=== PATIENT | male | born 1965 | race Caucasian/White ===

== ENCOUNTER 2016-07-22 22:07 | Emergency (ER) | payer BC, OTHER ==
[~2016-07-22] VITALS: Ht 182.9 cm; Wt 107.5 kg
--- NOTE | ~2016-07-22 | EKG ---
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 Electronically Signed On 07-23-2016 8:11:40 CDT by Benji Linda [email or web address] <ELECTRONICALLY SIGNED> By: Benji Linda MD, [facility] 07/23/16 0811 09 09 Benji Linda MD, [facility] /EPI
[~2016-07-22 22:07] MED LIST: ADVAIRDISKUS; AFRIN15 ML NS; ALLEGRA; AMOXICILLIN500 M1 PO; AMOXICILLIN875 MG PO; ASPIR 8181 M1 PO; BACTRIM DS TAB1 EACH; BENADRYL25 MG PO; BENICAR; BENZONATATE; CIPROFLOXACIN500 M1 PO; DIAZEPAM; DIFLUCAN150 MG PO; DOXYCYCLINE 10100 MG PO; ECONAZOLE 1% CR30 G1; FLOMAX0.4 MG PO; FLONASE 0.05%50 MCG NASAL; HYDROCODONE-AP1 EAC6 PO; IBUPROFEN 800800 M1 PO; LEVAQUIN 500 M500 MG PO; MEDROL; MEDROLDOSEPACK PO; MOBIC7.5 MG PO; NAPROSYN500 MG PO; NASONEX17 GM NS; NEXIUM; NORCO 5-325 TA1 EACH PO; ORADENT 0.1% DEN5 G1; OSELB75 PO; PEPCID40 MG PO; PERCOCET 5-3251 EACH PO; PREDNISONE 20 M20 MG PO; PROVENTIL; PROVENTIL HFA6.7 G1 INH; SINGULAIR; VALIUM5 MG PO; VENTOLIN17 GM INH; VICODIN 5-3001 EACH; VICODIN 5-3001 EACH PO; ZITHROMAX250 MG PO; ZOFRAN4 MG PO; ZPAK PO
[2016-07-22] MEDS ORDERED: CYCLOBENZAPRINE5 MG (22:45)
[2016-07-22] MEDS ORDERED: VALIUM5 MG (22:45)
[2016-07-22 23:07] LABS: ABSOLUTE NEUTROPHILS 4.6 thou/uL (1.4-8.2); BASOPHILS 0.6 % (0.0-2.0); EOSINOPHILS 1.4 % (0.0-3.0); HEMATOCRIT 44.1 % (42.0-52.0); HEMOGLOBIN 14.9 gm/dL (14.0-18.0); LYMPHOCYTES 28.7 % (24.0-44.0); MCH 29.5 pg (26.0-34.0); MCHC 33.7 g/dL (28.0-37.0); MCV 87.4 fL (80.0-100.0); PLATELET COUNT 196 thou/uL (150-400); POLYS 60.3 % (36.0-66.0); RBC 5.04 mil/uL (4.50-6.00); RDW 14.4 % (10.5-14.5); WBC 7.6 thou/uL (4.0-11.0)
[2016-07-22 23:10] LABS: MANUAL DIFF NO
[2016-07-22 23:15] LABS: ANION GAP 9 mmol/L (7-16); BUN 14 mg/dL (7-18); CALCIUM 8.5 mg/dL (8.5-10.1); CHLORIDE 105 mmol/L (98-107); CO2 24 mmol/L (21-32); CREATININE 1.3 mg/dL (0.7-1.3); GLUCOSE 156 mg/dL (74-106); POTASSIUM 3.7 mmol/L (3.5-5.1); SODIUM 138 mmol/L (136-145)
[2016-07-22 23:22] LABS: ALBUMIN 3.8 g/dL (3.4-5.0); ALKALINE PHOSPHATASE 64 U/L (46-116); SGOT 27 U/L (15-37); SGPT 39 U/L (30-65); TOTAL BILIRUBIN 0.3 mg/dL (<0.1-1.0); TOTAL PROTEIN 7.7 g/dL (6.4-8.2); TROPONIN-I < 0.04 ng/mL (<0.04-0.07)
== END 2016-07-23 00:50 | disposition home or self-care (01) ==
LOC: ER 22:07
PROVIDERS: Emergency Medicine
DX: R07.89 Other chest pain (principal); J45.909 Unspecified asthma, uncomplicated; I10 Essential (primary) hypertension; E78.00 Pure hypercholesterolemia, unspecified; G47.30 Sleep apnea, unspecified; Z88.1 Allergy status to other antibiotic agents

== ENCOUNTER 2017-01-15 19:59 | Emergency (ER) | payer BC, OTHER ==
[~2017-01-15] VITALS: Ht 182.9 cm; Wt 107.5 kg
--- NOTE | ~2017-01-15 | EKG ---
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
[~2017-01-15 19:59] MED LIST changes: +CYCLOBENZAPRINE5 MG; +VALIUM5 MG
[2017-01-15 21:01] LABS: HEMATOCRIT 44.8 % (42.0-52.0); HEMOGLOBIN 15.4 gm/dL (14.0-18.0); MCH 29.8 pg (26.0-34.0); MCHC 34.4 g/dL (28.0-37.0); MCV 86.6 fL (80.0-100.0); PLATELET COUNT 231 thou/uL (150-400); RBC 5.17 mil/uL (4.50-6.00); RDW 13.7 % (10.5-14.5); WBC 7.7 thou/uL (4.0-11.0)
[2017-01-15 21:02] LABS: MANUAL DIFF YES
[2017-01-15 21:13] LABS: ANION GAP 7 mmol/L (7-16); BUN 13 mg/dL (7-18); CALCIUM 9.2 mg/dL (8.5-10.1); CHLORIDE 104 mmol/L (98-107); CO2 28 mmol/L (21-32); CREATININE 1.3 mg/dL (0.7-1.3); GLUCOSE 89 mg/dL (74-106); SODIUM 139 mmol/L (136-145)
[2017-01-15 21:19] LABS: TROPONIN-I < 0.04 ng/mL (<0.06)
[2017-01-15 21:25] LABS: ABSOLUTE NEUTROPHILS 4.4 thou/uL (1.4-8.2); TOTAL CELL COUNT 100
[2017-01-15] MEDS ORDERED: ANTIVERT25 MG PO (21:38)
== END 2017-01-15 22:18 | disposition home or self-care (01) ==
LOC: ER 19:59
PROVIDERS: Emergency Medicine
DX: R07.89 Other chest pain (principal); J45.909 Unspecified asthma, uncomplicated; I10 Essential (primary) hypertension; E78.00 Pure hypercholesterolemia, unspecified; G47.30 Sleep apnea, unspecified; Z88.1 Allergy status to other antibiotic agents; Z88.2 Allergy status to sulfonamides; Z87.891 Personal history of nicotine dependence

== ENCOUNTER 2017-06-25 17:45 | Emergency (ER) | payer BC, OTHER ==
[~2017-06-25] VITALS: Ht 182.9 cm; Wt 112.0 kg
--- NOTE | ~2017-06-25 | EKG ---
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: : 1965 Requested By: Juan M Vargas Order Number: [id number] MD: Benji Linda Measurements Intervals [place] Rate: 81 P: 38 [place]: 148 QRS: -43 QRSD: 91 T: 8 QT: 357 QTc: 415 Interpretive Statements Sinus rhythm Left anterior fascicular block Abnormal R-wave progression, late transition Compared to ECG 01/15/2017 20:04:26 No significant changes Electronically Signed On 06-26-2017 13:02:39 CDT by Benji Linda [email or web address] <ELECTRONICALLY SIGNED> By: Benji Linda MD, [facility] 06/26/17 1302 11 11 Benji Linda MD, [facility] /EPI
[~2017-06-25 17:45] MED LIST changes: +ANTIVERT25 MG PO
[2017-06-25 18:18] LABS: ABSOLUTE NEUTROPHILS 4.5 thou/uL (1.4-8.2); BASOPHILS 0.9 % (0.0-2.0); EOSINOPHILS 1.5 % (0.0-3.0); HEMATOCRIT 45.3 % (42.0-52.0); HEMOGLOBIN 15.4 gm/dL (14.0-18.0); LYMPHOCYTES 24.3 % (24.0-44.0); MCH 29.8 pg (26.0-34.0); MCV 87.5 fL (80.0-100.0); PLATELET COUNT 232 thou/uL (150-400); POLYS 63.3 % (36.0-66.0); RBC 5.17 mil/uL (4.50-6.00); RDW 14.5 % (10.5-14.5); WBC 7.1 thou/uL (4.0-11.0)
[2017-06-25] MEDS ORDERED: STEROID RECTAL (18:18)
[2017-06-25 18:21] LABS: ANION GAP 9 mmol/L (7-16); BUN 14 mg/dL (7-18); CALCIUM 9.2 mg/dL (8.5-10.1); CHLORIDE 105 mmol/L (98-107); CO2 25 mmol/L (21-32); CREATININE 1.2 mg/dL (0.7-1.3); GLUCOSE 115 mg/dL (74-106); SODIUM 139 mmol/L (136-145)
[2017-06-25 18:30] LABS: TROPONIN-I < 0.04 ng/mL (<0.06)
[2017-06-25] MEDS ORDERED: PROTONIX40 M1 PO (19:03)
== END 2017-06-25 19:30 | disposition home or self-care (01) ==
LOC: ER 17:45
PROVIDERS: Emergency Medicine
DX: R07.89 Other chest pain (principal); I10 Essential (primary) hypertension; J45.909 Unspecified asthma, uncomplicated; Z87.891 Personal history of nicotine dependence; Z88.1 Allergy status to other antibiotic agents

== ENCOUNTER 2017-09-29 11:22 | Emergency (ER) | payer BC, OTHER ==
[~2017-09-29] VITALS: Ht 182.9 cm; Wt 107.5 kg
--- NOTE | ~2017-09-29 | EKG ---
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[facility] : 1965 Requested By: Christopher Arevalo Order Number: [id number] MD: Benji Linda Measurements Intervals [place] Rate: 77 P: 51 [place]: 150 QRS: -45 QRSD: 95 T: 6 QT: 371 QTc: 420 Interpretive Statements Sinus rhythm Left anterior fascicular block Abnormal R-wave progression, late transition Compared to ECG 06/25/2017 18:12:17 No significant changes Electronically Signed On 09-30-2017 8:34:49 CDT by Benji Linda [email or web address] <ELECTRONICALLY SIGNED> By: Benji Linda MD, [facility] 09/30/17 0834 21 21 Benji Linda MD, [facility] /EPI
[~2017-09-29 11:22] MED LIST changes: +PROTONIX40 M1 PO; +STEROID RECTAL
[2017-09-29 12:12] LABS: HEMATOCRIT 46.6 % (42.0-52.0); HEMOGLOBIN 16.4 gm/dL (14.0-18.0); MCH 30.5 pg (26.0-34.0); MCHC 35.3 g/dL (28.0-37.0); MCV 86.6 fL (80.0-100.0); PLATELET COUNT 215 thou/uL (150-400); RBC 5.38 mil/uL (4.50-6.00); RDW 13.9 % (10.5-14.5); WBC 7.1 thou/uL (4.0-11.0)
[2017-09-29 12:19] LABS: ANION GAP 5 mmol/L (7-16); BUN 11 mg/dL (7-18); CALCIUM 9.7 mg/dL (8.5-10.1); CHLORIDE 104 mmol/L (98-107); CO2 27 mmol/L (21-32); CREATININE 1.3 mg/dL (0.7-1.3); GLUCOSE 99 mg/dL (74-106); POTASSIUM 3.9 mmol/L (3.5-5.1); SODIUM 136 mmol/L (136-145)
[2017-09-29 12:27] LABS: TROPONIN-I <0.06 ng/mL (<0.06)
[2017-09-29 12:29] LABS: ABSOLUTE NEUTROPHILS 3.9 thou/uL (1.4-8.2); PLATELET ESTIMATE NORMAL
[2017-09-29 12:59] LABS: URINE BILIRUBIN NEGATIVE (Negative); URINE BLOOD TRACE (Negative); URINE CLARITY CLEAR; URINE COLOR YELLOW; URINE GLUCOSE-RANDOM* NEGATIVE (Negative); URINE KETONES NEGATIVE (Negative); URINE LEUKOCYTES-REFLEX NEGATIVE (Negative); URINE NITRITE-REFLEX NEGATIVE (Negative); URINE PROTEIN (DIPSTICK) NEGATIVE (Negative); URINE SPECIFIC GRAVITY <= 1.005 (1.005-1.035); URINE UROBILINOGEN 0.2 E.U./dl (0.2-1.0)
== END 2017-09-29 14:44 | disposition home or self-care (01) ==
LOC: ER 11:22
PROVIDERS: Physician Assistant
DX: R20.2 Paresthesia of skin (principal); R53.1 Weakness; I10 Essential (primary) hypertension; J45.909 Unspecified asthma, uncomplicated; E78.00 Pure hypercholesterolemia, unspecified; F41.9 Anxiety disorder, unspecified; G47.30 Sleep apnea, unspecified; Z87.01 Personal history of pneumonia (recurrent); Z87.891 Personal history of nicotine dependence; Z88.1 Allergy status to other antibiotic agents; Z88.2 Allergy status to sulfonamides; Z88.8 Allergy status to other drugs, medicaments and biological substances

== ENCOUNTER 2017-10-12 23:43 | Emergency (ER) | payer BC, OTHER ==
[~2017-10-12] VITALS: Ht 182.9 cm; Wt 107.5 kg
[2017-10-13] MEDS ORDERED: MEDROLDOSEPACK PO (01:29)
[2017-10-13] MEDS ORDERED: NYAMYC15 GM TOP (01:29)
== END 2017-10-13 01:41 | disposition home or self-care (01) ==
LOC: ER 23:43
DX: B35.6 Tinea cruris (principal); L27.0 Generalized skin eruption due to drugs and medicaments taken internally; T36.4X5A Adverse effect of tetracyclines, initial encounter; Y92.89 Other specified places as the place of occurrence of the external cause; J45.909 Unspecified asthma, uncomplicated; I10 Essential (primary) hypertension; G80.9 Cerebral palsy, unspecified; G47.30 Sleep apnea, unspecified; F41.9 Anxiety disorder, unspecified; Z87.891 Personal history of nicotine dependence; Z88.2 Allergy status to sulfonamides; Z88.8 Allergy status to other drugs, medicaments and biological substances

== ENCOUNTER 2020-07-03 17:47 | Emergency (ER) | payer BC, OTHER ==
[~2020-07-03] VITALS: Ht 182.9 cm; Wt 108.9 kg
[~2020-07-03 17:47] MED LIST changes: +NYAMYC15 GM TOP
[2020-07-03 19:14] VITALS: BP 139/94
[2020-07-03] MEDS ORDERED: CLEOCIN HCL300 MG PO (19:19)
== END 2020-07-03 19:25 | disposition home or self-care (01) ==
LOC: ER 17:47
DX: L03.317 Cellulitis of buttock (principal); J45.909 Unspecified asthma, uncomplicated; I10 Essential (primary) hypertension; Z87.891 Personal history of nicotine dependence; Z88.3 Allergy status to other anti-infective agents; Z88.1 Allergy status to other antibiotic agents